=== PATIENT | female | born 1990 | race African-American/Black ===

== ENCOUNTER 2018-05-06 09:35 | Emergency (ER) | payer MEDICAID, OTHER ==
[~2018-05-06] VITALS: Ht 160 cm; Wt 73.0 kg
[2018-05-06] MEDS ORDERED: IBUPROFEN 600MG TABLET PO ONE (10:30)
[2018-05-06] MEDS ORDERED: PHENAZOPYRIDINE HCL 100MG TABLET PO ONE (10:30)
[2018-05-06] MEDS ORDERED: LEVOFLOXACIN 500MG TABLET PO ONE (10:30)
[2018-05-06 10:40] VITALS: BP 117/77
[2018-05-06 10:58] LABS: CLARITY URINE CLEAR (CLEAR); COLOR URINE YELLOW (YELLOW); KETONES URINE NEGATIVE (NEGATIVE); LEUKOCYTE ESTERASE URINE NEGATIVE (NEGATIVE); NITRITE URINE NEGATIVE (NEGATIVE); OCCULT BLOOD URINE NEGATIVE (NEGATIVE); PH URINE 6.5 (4.5-8.0); PROTEIN URINE NEGATIVE (NEGATIVE); SPECIFIC GRAVITY URINE 1.012 (1.005-1.030); UROBILINOGEN URINE 0.2 E.U./dL (0.2-1.0)
== END 2018-05-06 11:02 | disposition home or self-care (01) ==
LOC: ER 09:35
DX: N39.0 Urinary tract infection, site not specified (principal)
CPT/HCPCS: 81025; 99284